=== PATIENT | male | born 1980 | race African-American/Black ===

== ENCOUNTER 2021-05-29 09:12 | Emergency (ER) | payer SELFPAY ==
[2021-05-29] MEDS ORDERED: Diazepam 10 MG/2 ML SYRINGE ONE ×2 (09:42→10:00)
[2021-05-29] MEDS ORDERED: Ketorolac Tromethamine 30 MG/ML VIAL ONE (09:43)
== END 2021-05-29 10:40 | disposition home or self-care (01) ==
LOC: CSHERS 09:12
DX: S33.5XXA Sprain of ligaments of lumbar spine, initial encounter (principal); I10 Essential (primary) hypertension; F17.210 Nicotine dependence, cigarettes, uncomplicated; X50.9XXA Other and unspecified overexertion or strenuous movements or postures, initial encounter
CPT/HCPCS: 96374; 96375; J1885; J3360